=== PATIENT | female | born 1985 | race Caucasian/White ===

== ENCOUNTER 2019-10-15 07:31 | Outpatient (CLI) | payer BC, SELFPAY ==
--- NOTE | ~2019-10-15 | MR_ITS ---
EXAMINATION: MR lumbar spine wo con DATE: 10/15/2019 08:24 INDICATION: Lumbar radiculopathy. TECHNIQUE: Magnetic resonance imaging (MRI) of the lumbar spine was performed without intravenous con trast. Sequences included sagittal T2-weighted FSE, sagittal T2-weighted FS FSE, sagittal T1-weighted FSE, and axial T2-weighted FSE. COMPARISON: Lumbar spine MRI 08/06/2016 FINDINGS: There is 4 mm retrolisthesis of L5 on S1. Vertebral body heights are normal. There is sever dori decreased disc height at L5-S1. The distal spinal cord signal intensity is normal. The conus medu llaris is at L1-L2. The following disc levels are specifically discussed: L1-L2 through L3-L4: The disc does not extend beyond the endplate margin. There is no facet joint ost eoarthritis. There is no neural foraminal stenosis. There is no central canal stenosis. L4-L5: The disc does not extend beyond the endplate margin. There is mild bilateral facet joint osteo arthritis. There is no neural foraminal stenosis. There is no central canal stenosis. L5-S1: The disc is bulging and has an annular fissure. There is mild right facet joint osteoarthritis . There is mild bilateral neural foraminal stenosis. There is mild central canal stenosis. IMPRESSION: 1. Severe lower lumbar spondylosis, stable from 08/06/2016. Reviewed, dictated and finalized at location B.
== END 2019-10-15 07:32 ==
PROVIDERS: PCP Internal Medicine; Visit Provider Nurse Practitioner Adult Health
DX: M47.26 Other spondylosis with radiculopathy, lumbar region (principal)
CPT/HCPCS: 72148

== ENCOUNTER 2020-06-03 11:37 | Emergency (ER) | payer BC, SELFPAY ==
--- NOTE | ~2020-06-03 | CT_ITS ---
EXAMINATION: CT abdomen pelvis w con DATE: 06/03/2020 14:31 INDICATION: Right lower quadrant abdominal pain, nausea and vomiting. TECHNIQUE: Computed tomography (CT) of the abdomen and pelvis was performed with 100 cc Omnipaque 350 intravenous contrast. Automated exposure control and iterative reconstruction technique were employe d. Exam dose: 05/14/2017 CT abdomen pelvis mGy-cm total exam DLP. COMPARISON: None. FINDINGS: The lung bases are clear of infiltrate or consolidation. Heart size is within normal limits. The liver, gallbladder, bile ducts, spleen, pancreas, pancreatic duct, and adrenal glands and kidneys are unremarkable. Normal caliber of the abdominal aorta. Status post hysterectomy. 3.6 x 4 cm right ovarian cyst. The adnexal areas are otherwise unremarkable . No intraperitoneal or retroperitoneal or pelvic mass lesion or adenopathy or ascites is noted otherwi se. No evidence of appendicitis. No bowel obstruction, bowel wall thickening, pneumatosis or intraperiton eal free air. IMPRESSION: 3.6 x 4 cm right ovarian cyst Status post hysterectomy Severe degenerative disc disease and mild retrolisthesis at L5-S1 Reviewed, dictated and finalized at [facility]. Reviewed, dictated and finalized at location A.
[2020-06-03 11:42] VITALS: BP 123/62; PULSE 85; RESP 18; TEMP 36.4; O2SAT 100
--- NOTE | 2020-06-03 12:08 | ED.FEVER ---
HPI - Fever General Chief Complaint: Fever Stated Complaint: FEVER Time Seen by Provider: 06/03/20 12:03 History of Present Illness HPI Narrative: 35 yo female w/ h/o ovarian cysts presents to the ED for lower abdominal pain. She reports that she has had ongoing lower abdominal pain for quite some time due to numerous bilateral ovarian cysts. She is scheduled to have bilateral oophorectomy by Dr. Navarro in the near future. She came in today because while working over night the pain in RLQ became worse. She was also sent home from work for an elevated temperature of 100.3. Additional she did vomit once. She took Tylenol before coming in. Related Data Home Medications Medication Instructions Recorded Confirmed cyclobenzaprine mg 06/03/20 hydrocodone-acetaminophen 06/03/20 meloxicam 06/03/20 Allergies Allergy/AdvReac Type Severity Reaction Status Date / Time clindamycin Allergy Unknown ITCHING, Verified 06/03/20 11:45 HIVES erythromycin base Allergy Unknown UNSURE OF Verified 06/03/20 11:45 REACTION sulfisoxazole Allergy Unknown UNSURE OF Verified 06/03/20 11:45 REACTION Review of Systems Review of Systems: All systems reviewed & are unremarkable except as noted in HPI and below Constitutional: Constitutional: Reports fever(s) Cardiovascular: Cardiovascular: Denies chest pain Respiratory: Respiratory: Denies dyspnea Gastrointestinal: Gastrointestinal: Reports abdominal pain, Denies constipation, Denies diarrhea, Reports nausea and Reports vomiting Genitourinary: Genitourinary: Denies abnormal vaginal bleeding, Denies hematuria, Denies dysuria and Denies vaginal discharge Musculoskeletal: Musculoskeletal: Denies back pain Neurologic: Denies dizziness and Denies weakness [facility] Past Medical History Medical History (Updated 06/04/20 @ 00:01 by Amber Daeusebio) Ovarian cyst Social History Social History Gender identity (if verbalized by the patient): Female Exam Const: General: healthy appearing, no acute distress and alert Orientation/consciousness: patient oriented x3 HENMT: Head: normal to inspection Neck: Neck: normal visual inspection Resp: Effort & Inspection: normal respiratory effort Auscultation: clear to auscultation bilaterally, no rales, no rhonchi and no wheezes Cardio: Jugular venous distension: no JVD Rate: regular rate Rhythm: regular rhythm Heart sounds: no murmurs GI: Inspection: non-distended GI Palp: Yes Soft to palpation, Yes Tenderness to palpation present (GI) (RLQ), No Guarding due to palpation present (GI) and No Rebound tenderness present Skin: General skin exam: normal color Neuro: General: patient oriented x3 and moves all extremities Speech: normal speech Psych: Appearance: well kempt Affect: normal affect Course Vital Signs Vital signs: Vital Signs Temperature 36.4 C 06/03/20 11:42 Pulse Rate 85 06/03/20 11:42 Respiratory Rate 18 06/03/20 11:42 Blood Pressure 123/62 06/03/20 11:42 Pulse Oximetry 100 06/03/20 11:42 Temperature 36.4 C 06/03/20 11:42 Pulse Rate 63 06/03/20 14:00 Respiratory Rate 18 06/03/20 14:00 Blood Pressure 100/43 L 06/03/20 14:00 Pulse Oximetry 98 06/03/20 14:00 MDM - Fever MDM Narrative Medical decision making narrative: CT shows only right avarian cyst. No other acute findings.. Case discussed with Dr. Navarro. He will plan to move forward with surgery as planned. Differential Diagnosis Differential diagnosis: Likely other (appendicits, cyst rupture) Medical Records Attestation: I reviewed the patient's medical records. Lab Data Attestation: I reviewed the patient's lab results. Result diagrams: 06/03/20 12:48 06/03/20 12:48 Labs: Lab Results 06/03/20 06/03/20 06/03/20 Range/Units 12:48 12:48 12:48 WBC 6.4 (4.5-10.0) K/mm3 RBC 4.35 (4.2-5.4) M/mm3 Hgb 14.3 (12.0-15.0) g/dL Hct 43.1 (37.0-47.0) % MCV 99.1
[2020-06-03 12:55] LABS: Basophils Percent Auto 0.6 % (0.2-1.2); Eosinophils Absolute Auto 0.1 K/mm3 (0-0.3); Eosinophils Percent Auto 1.4 % (0-4.4); Hematocrit 43.1 % (37.0-47.0); Hemoglobin 14.3 g/dL (12.0-15.0); Immature Granulocyte Absolute 0.02 K/mm3 (0.00-0.031); Immature Granulocyte Percent A 0.3 % (0-0.5); Lymphocytes Absolute Auto 1.94 K/mm3 (0.9-3.2); Lymphocytes Percent Auto 30.5 % (18.3-44.2); Mean Corpuscular HGB Conc 33.2 g/dl (32-36); Mean Corpuscular Hemoglobin 32.9 pg (26-34); Mean Corpuscular Volume 99.1 fl (80-100); Monocytes Absolute Auto 0.3 K/mm3 (0.1-0.6); Monocytes Percent Auto 4.9 % (2.6-8.5); Neutrophils Percent Auto 62.3 % (45.5-73.1); Platelet Count Result 175 k/mm3 (150-375); Red Blood Count 4.35 M/mm3 (4.2-5.4); Red Cell Distribution Width 12.2 % (11.5-14.5); White Blood Count 6.4 K/mm3 (4.5-10.0)
[2020-06-03 13:00] LABS: Add Urine Microscopic? YES; Appearance Urine Cloudy (Clear); Bacteria Urine Trace /hpf; Bilirubin Urine Negative (Negative); Blood Urine 1+ (Negative); Color Urine Yellow (Yellow); Glucose Urine UA Negative (Negative); Ketones Urine 1+ mg/dL (Negative); Leukocyte Esterase Ur Negative LEU/UL (Negative); Mucus Urine Rare /lpf; Nitrate Urine Negative (Negative); Protein Urine Negative (Negative); RBC Urine 0-2 /hpf (0-2); Specific Grav Ur 1.013 (1.001-1.035); Squamous Epithelial Cell Urine Occasional /hpf (Few); Urobilinogen Urine Negative mg/dL (<2.0); WBC Urine 0-3 /hpf
[2020-06-03 13:06] LABS: Alanine Aminotransferase 15 U/L (4-35); Albumin Level 4.6 g/dL (3.5-5.1); Alkaline Phosphatase 38 U/L (38-126); Anion Gap 4 mmol/L (8-16); Aspartate Amino Transferase 25 U/L (14-36); Blood Urea Nitrogen 9 mg/dL (7-17); Calcium 8.9 mg/dL (8.4-10.2); Carbon Dioxide 29 mmol/L (22-30); Chloride 104 mmol/L (98-107); Estimated CRCL calculation 92 ml/min; Estimated Glomerular Filt Rate > 60; Glucose 82 mg/dL (65-105); Lipase 84 U/L (23-300); Potassium 4.2 mmol/L (3.4-5.0); Sodium 137 mmol/L (137-145)
[2020-06-03 14:00] VITALS: BP 100/43; PULSE 63; RESP 18; O2SAT 98
[2020-06-03] MEDS: HYDROcodone/acetaminophen (*CRX) 5-325 MG TABLET 1 TAB PO (14:38)
== END 2020-06-03 15:40 | disposition home or self-care (01) ==
PROVIDERS: Emergency Provider Emergency Medicine; PCP Internal Medicine
DX: N83.201 Unspecified ovarian cyst, right side (principal); M51.37 Other intervertebral disc degeneration, lumbosacral region
CPT/HCPCS: 36415; 74177; 80053; 81001; 83690; 85025; 99284; A9270; Q9967

== ENCOUNTER 2020-06-08 11:22 | Outpatient (CLI) | payer BC, SELFPAY ==
--- NOTE | 2020-06-08 11:26 | ECG_ITS ---
Measurements Intervals [place] Rate: 71 P: 65 HI: 149 QRS: 41 QRSD: 92 T: 35 QT: 383 QTc: 418 Interpretive Statements SINUS RHYTHM WITH SINUS ARRHYTHMIA INCOMPLETE RIGHT BUNDLE BRANCH BLOCK DELAYED PRECORDIAL R/S TRANSITION BASELINE ARTIFACT- I, II, III, AVR, AVL, AVF, V1-V2 BORDERLINE ECG Electronically Signed On 06-08-2020 11:52:13 CDT by Alex Herrera D.O.
== END 2020-06-08 11:23 | disposition home or self-care (01) ==
LOC: ANHSURGERY 11:25
PROVIDERS: PCP Internal Medicine; Visit Provider Obstetrics & Gynecology
DX: Z87.891 Personal history of nicotine dependence (principal); Z01.818 Encounter for other preprocedural examination; I45.10 Unspecified right bundle-branch block
CPT/HCPCS: 93005

== ENCOUNTER → 2020-06-10 00:46 | Outpatient (CLI) | payer BC, SELFPAY ==
[2020-06-10 20:53] LABS: SARS-CoV-2 RNA PCR Negative
== END ==
PROVIDERS: PCP Internal Medicine; Visit Provider Obstetrics & Gynecology
DX: Z01.812 Encounter for preprocedural laboratory examination (principal); Z20.822 Contact with and (suspected) exposure to COVID-19
CPT/HCPCS: C9803; U0003; U0005

== ENCOUNTER 2020-06-14 00:29 | Day surgery (SDC) | payer BC, SELFPAY ==
[2020-06-05 14:31] VITALS: BMI 22.6
--- NOTE | 2020-06-13 14:33 | WPDANESEPPF ---
Anes - Initial Pre Proc Eval Procedure: Operation Date: 06/14/20 10:30 Proposed Procedures p Laparoscopic Bilateral Oophorectomy - Abdirizak Navarro MD Date/Time: 06/13/20 14:33 Surgeon: Abdirizak Navarro MD Pre Op Diagnosis: Ovarian Cyst Patient Data Age: 35 Gender: F Height: 1.7 m Weight: 65.7 kg Allergies Allergy/AdvReac Type Severity Reaction Status Date / Time clindamycin Allergy Severe ITCHING, Verified 06/14/20 08:39 HIVES erythromycin base AdvReac Mild RASH/ITCHY Verified 06/14/20 08:39 sulfisoxazole AdvReac Unknown Verified 06/14/20 08:39 INFANT-MOM/PT UNSURE OF REACTION Home Medications Medication Instructions Recorded Confirmed Type cyclobenzaprine 10 mg PO HS PRN 06/03/20 06/14/20 History hydrocodone-acetaminophen 1 tablet PO Q6H PRN 06/03/20 06/14/20 History meloxicam 15 mg PO DAILY 06/03/20 06/14/20 History cetirizine [Zyrtec] 10 mg PO DAILY 06/05/20 06/14/20 History landry kvrq-epjnlckl-okenqkmyo ac 2 cap PO DAILY 06/05/20 06/14/20 History [[place] Oil] fluticasone propionate [Flonase] 2 spray INTRANASAL DAILY 06/05/20 06/14/20 History Patient hx anesthesia problems: none Family hx anesthesia problems: none PMFSH Past Medical History Medical History (Updated 06/13/20 @ 14:35 by Joshua Rodriguez MD) Back pain Chronic narcotic use Migraine Ovarian cyst Social History Social History Smoking packs per day: 1 Smoking cigarettes per day: 20.0 Years smoked: 20 Smoking pack-years: 20.00 Smoking status: Current every day smoker Tobacco type: cigarettes and e-cigarettes/vaping Additional smoking assessment comments: STOPPED SMOKING CIGARETTES 5 YRS AGO Alcohol intake: never Substance use: never Substance use type: does not use Living arrangements: with family Gender identity (if verbalized by the patient): Female Spiritual care concerns: No Anes - Eval Final PreProcedure Day of Procedure 06/13/20 14:33 Patient weight: normal Heart: regular rate and rhythm Lungs: clear to auscultation and normal air movement Airway: Mallampati scale class II Neurological: alert and oriented Last oral intake: >/= 8 hours ASA classification: II Emergent: no Anesthetic plan: proceed Anesthesia type and monitoring: general ETT Informed Consent: The patient's anesthetic plan and its attendant risks and benefits were discussed with the patient/family/POA. Questions were solicited and answers provided to the satisfaction of the patient/family/POA.
[2020-06-14] VITALS (9 sets, daily range): BP systolic 101–124; BP diastolic 49–79; PULSE 56–88; RESP 14–20; TEMP 36.4; O2SAT 94–100
[2020-06-14] MEDS: ACETAMINOPHEN 500 MG TABLET 1000 MG PO (08:55)
[2020-06-14] MEDS: LACTATED RINGERS 1,000 ML 30 ML IV CONT ×3 (09:00→13:43)
[2020-06-14] MEDS: KETOROLAC 15 MG/ML VIAL (*BKC) IV PUSH (09:02)
--- NOTE | 2020-06-14 10:05 | WPDHPUPDATE1 ---
History and Physical Update Update Date/Time: 06/14/20 10:05 History and Physical has been reviewed, including an updated exam of the patient. There are NO changes in the patient's condition. Risks, benefits, and alternatives have been discussed and questions answered. Patient agrees to proceed with procedure.
--- NOTE | 2020-06-14 12:21 | P.OP_ITS ---
Procedure Note - Detailed Date of procedure: 06/14/20 Pre-op diagnosis: Ovarian Cyst Procedure performed: Laparoscopic bilateral salpingo-oophorectomy, adhesiolysis- 1 hour Description of procedure: The patient was taken the operating room. She was prepped and draped in the dorsal lithotomy position after induction of general anesthesia. A 5 mm left upper quadrant incision was made in the abdominal skin with a scalpel. A 5 mm trocar was inserted the intra-abdominal cavity under direct visualization of the scope. A 11 mm left lower quadrant incision was made with the scalp on the abdominal skin and a 11 mm trocar was inserted the intra-abdominal cavity under direct visualization of the scope. A 5 mm infraumbilical incision was made with scalpel and a 5 mm trocar was inserted into the intra-abdominal cavity under direct visualization of the scope. Ureters were dissect than on both sides. Extensive adhesiolysis was performed in order to expose ureters bilaterally. Infundibulopelvic ligaments were elevated along with the ovary bilaterally. Infundibulopelvic ligaments were cauterized and transected with cautery. Both ovaries were adherent to the pelvic sidewalls with dense adhesions. Dissected off the pelvic sidewall with an awareness of the ureter anatomy. The ovaries were placed in an endobag with a were free and taken at the left lower quadrant trocar site. The pelvis was irrigated with copious amounts of normal saline. The pneumop eritoneum was reduced. The trocars were removed. The patient was taken recovery room stable condition. Sponge lap and needle counts were correct x2. Anesthesia: GETA Surgeon: Abdirizak Navarro MD Estimated blood loss (mL): 100 Drains: No Packing: No Complications: No immediate complications Condition: stable Disposition: PACU Findings: Bilateral ovaries were adherent to the lateral pelvic sidewalls. There was a likely endometrioma on the right ovary.
[2020-06-14] MEDS: fentaNYL CITRATE INJ (*CRX) 100 MCG/2 ML VIAL 25 MCG IV PUSH ×4 (12:59→13:22)
[2020-06-14] MEDS: HYDROmorphone HCL INJ (*CRX) 1 MG/ML SYR 0.25 MG IV PUSH ×4 (13:03→13:32)
[2020-06-14] MEDS: oxyCODONE HCL (*CRX) 5 MG TAB IR PO (14:07)
== END 2020-06-14 15:05 | disposition home or self-care (01) ==
PROVIDERS: PCP Internal Medicine; Visit Provider Obstetrics & Gynecology
PROC: (CPT 49320; principal; 2020-06-14 10:30)
DX: N83.12 Corpus luteum cyst of left ovary (principal); N83.11 Corpus luteum cyst of right ovary; N83.02 Follicular cyst of left ovary; N83.01 Follicular cyst of right ovary; N83.292 Other ovarian cyst, left side; N83.291 Other ovarian cyst, right side; N73.6 Female pelvic peritoneal adhesions (postinfective); Z86.008 Personal history of in-situ neoplasm of other site; Z90.710 Acquired absence of both cervix and uterus
CPT/HCPCS: 58661; 88305; 93005; A9270; C9803; J0330; J1100; J1170; J1200; J1885; J2250; J2405; J2704; J2710; J3010; J7030; J7120; U0003; U0005

== ENCOUNTER 2021-12-20 16:38 | Emergency (ER) | payer BC, SELFPAY ==
[2021-12-20] VITALS (10 sets, daily range): BP systolic 98–113; BP diastolic 51–62; PULSE 56–83; RESP 12–24; TEMP 37; O2SAT 96–100
--- NOTE | ~2021-12-20 | CT_ITS ---
EXAMINATION: CTA chest PE abdomen pel DATE: 12/20/2021 19:18 INDICATION: Right chest pain. Recent travel. Estrogen therapy. TECHNIQUE: Computed tomography angiography (CTA) of the chest was performed with 100 mL Omnipaque-350 intravenous contrast timed to evaluate the pulmonary arteries. Coronal maximum intensity projection 3D-reconstructions were created by the technologist. Automated exposure control and iterative reconst ruction technique were employed. Exam dose: 485.10 mGy-cm total exam DLP. COMPARISON: 12/20/2021 AP and lateral chest FINDINGS: There is diagnostic contrast enhancement of pulmonary embolism no evidence of pulmonary emb olism. No thoracic aortic aneurysm or dissection is evident. No hilar or mediastinal mass lesion or lymphadenopathy. Normal heart size. No pericardial or pleural effusion. No pulmonary infiltrate or consolidation or pulmonary mass lesion. Pectus excavatum. No suspicious osteolytic or osteoblastic lesions. The liver, gallbladder, bile ducts, spleen, pancreas, pancreatic duct, and adrenal glands and kidneys appear normal. Normal caliber of the abdominal aorta. No intraperitoneal or retroperitoneal or pelvi c mass lesion or adenopathy or ascites. The urinary bladder is unremarkable. The uterus appears to be surgically absent. No bowel obstruction, bowel wall thickening, pneumatosis or intraperitoneal free air Prominent degenerative disc disease and mild retrolisthesis at L5-S1. No suspicious osteolytic or osteoblastic lesions. IMPRESSION: No evidence of pulmonary embolism Reviewed, dictated and finalized at [facility]. Reviewed, dictated and finalized at location A.
--- NOTE | ~2021-12-20 | XR_ITS ---
XR chest 2V DATE: 12/20/2021 17:55 INDICATION: Central chest pain. Dizziness. TECHNIQUE: AP and lateral views COMPARISON: None FINDINGS: Pectus excavatum. Heart size is within normal limits. No pulmonary infiltrate or consolidat ion, pleural effusion or pulmonary vascular congestion or pneumothorax. IMPRESSION: No active cardiopulmonary disease Reviewed, dictated and finalized at location A.
--- NOTE | 2021-12-20 16:43 | ECG_ITS ---
Measurements Intervals [place] Rate: 69 P: 64 CT: 147 QRS: 54 QRSD: 104 T: 47 QT: 392 QTc: 420 Interpretive Statements SINUS RHYTHM INCOMPLETE RIGHT BUNDLE BRANCH BLOCK BASELINE ARTIFACT- I, II, AVR, AVL, AVF, V1-V6 BORDERLINE ECG COMPARED TO ECG 06/08/2020 11:39:36 NO SIGNIFICANT CHANGES Electronically Signed On 12-20-2021 19:05:35 CDT by Alex Herrera D.O.
[2021-12-20 17:19] LABS: Basophils Percent Auto 0.5 % (0.2-1.2); Eosinophils Absolute Auto 0.2 K/mm3 (0-0.3); Eosinophils Percent Auto 2.5 % (0-4.4); Hematocrit 41.2 % (37.0-47.0); Hemoglobin 13.7 g/dL (12.0-15.0); Immature Granulocyte Absolute 0.01 K/mm3 (0.00-0.031); Immature Granulocyte Percent A 0.2 % (0-0.5); Lymphocytes Absolute Auto 2.16 K/mm3 (0.9-3.2); Lymphocytes Percent Auto 35.7 % (18.3-44.2); Mean Corpuscular HGB Conc 33.3 g/dl (32-36); Mean Corpuscular Hemoglobin 32.7 pg (26-34); Mean Corpuscular Volume 98.3 fl (80-100); Monocytes Absolute Auto 0.4 K/mm3 (0.1-0.6); Monocytes Percent Auto 6.6 % (2.6-8.5); Neutrophils Absolute Auto 3.3 K/mm3 (1.3-6.7); Neutrophils Percent Auto 54.5 % (45.5-73.1); Platelet Count Result 172 k/mm3 (150-375); Red Blood Count 4.19 M/mm3 (4.2-5.4); White Blood Count 6.1 K/mm3 (4.5-10.0)
--- NOTE | 2021-12-20 17:19 | ED.CHESTPAIN ---
HPI - Chest Pain General Chief Complaint: Chest Pain Stated Complaint: chest pain Time Seen by Provider: 12/20/21 17:19 History of Present Illness HPI narrative: Patient is a 36-year-old female with a history of cervical cancer status post hysterectomy on estrogen therapy presenting with chest pain. Patient states that for the last week she has had ongoing right-sided chest pain that has worsened over the last several days. States that it is worse with inspiration. States she feels like she cannot get a full breath. Patient reports that she had a plane ride several weeks ago. States that she currently takes estradiol. Patient complains of some mild epigastric pain but no nausea or vomiting, dysuria, diarrhea. No recent leg swelling. No fevers, headache, numbness, weakness. Related Data Home Medications Medication Instructions Recorded Confirmed cyclobenzaprine 10 mg tablet 10 mg PO HS PRN Pain 06/03/20 06/14/20 hydrocodone 5 mg-acetaminophen 325 1 tablet PO Q6H PRN Pain 06/03/20 06/14/20 mg tablet meloxicam 15 mg tablet 15 mg PO DAILY 06/03/20 06/14/20 cetirizine 10 mg tablet (Zyrtec) 10 mg PO DAILY 06/05/20 06/14/20 evening primrose oil-linoleic 2 cap PO DAILY 06/05/20 06/14/20 acid-gamolenic acid 1,000 mg capsule ([place] Oil) fluticasone propionate 50 2 spray intranasal DAILY 06/05/20 06/14/20 mcg/actuation nasal spray,suspension Allergies Allergy/AdvReac Type Severity Reaction Status Date / Time clindamycin Allergy Severe ITCHING, Verified 06/14/20 08:39 HIVES erythromycin base AdvReac Mild RASH/ITCHY Verified 06/14/20 08:39 sulfisoxazole AdvReac Unknown Verified 06/14/20 08:39 INFANT-MOM/PT UNSURE OF REACTION Review of Systems Review of Systems: All systems reviewed & are unremarkable except as noted in HPI and below PMFSH Past Medical History Medical History Back pain Chronic narcotic use Migraine Ovarian cyst Social History Social History Smoking packs per day: 1 Smoking cigarettes per day: 20.0 Years smoked: 20 Smoking pack-years: 20.00 Smoking status: Current every day smoker Tobacco type: cigarettes and e-cigarettes/vaping Additional smoking assessment comments: STOPPED SMOKING CIGARETTES 5 YRS AGO Alcohol intake: never Substance use: never Substance use type: does not use Gender identity (if verbalized by the patient): Female Spiritual care concerns: No Exam Narrative: GENERAL: Well-appearing, well-nourished, and in no acute distress. HEAD: Normocephalic, atraumatic. EYES: PERRLA and EOMI. ENT: Nares clear, no rhinorrhea or epistaxis. Mucous membranes moist. NECK: Supple. CHEST: Clear to auscultation. No respiratory distress. HEART: Regular rate and rhythm. No murmur heard. Normal peripheral pulses. ABDOMEN: Soft, mild epigastric tenderness, nondistended, normal active bowel sounds. EXTREMITIES: Normal range of motion. No edema. SKIN: Warm, dry, no rash. NEURO: No focal deficits. Alert and oriented x3. PSYCH: Normal mood and affect. Course Vital Signs Vital signs: Vital Signs Temperature 98.6 F 12/20/21 16:48 Pulse Rate 76 12/20/21 16:48 Respiratory Rate 20 12/20/21 16:48 Blood Pressure 111/57 L 12/20/21 16:48 Pulse Oximetry 96 12/20/21 16:48 Oxygen Delivery Room Air 12/20/21 16:48 Temperature 98.6 F 12/20/21 16:48 Pulse Rate 65 12/20/21 21:13 Respiratory Rate 16 12/20/21 21:13 Blood Pressure 98/51 L 12/20/21 21:13 Pulse Oximetry 100 12/20/21 21:13 Oxygen Delivery Room Air 12/20/21 16:48 MDM - Chest Pain MDM Narrative Medical decision making narrative: Patient is a 36-year-old female with history as above presenting with chest pain. Vitals within normal limits. Exam remarkable for the above. EKG per my interpretation shows normal sinus rhythm, normal
[2021-12-20 17:30] LABS: Prothrombin Time 13.1 Seconds (11.1-14.7)
[2021-12-20 17:31] LABS: Alanine Aminotransferase 19 U/L (6-35); Albumin Level 4.7 g/dL (3.5-5.1); Alkaline Phosphatase 47 U/L (38-126); Anion Gap 9 mmol/L (8-16); Aspartate Amino Transferase 25 U/L (14-36); Bilirubin,Total 0.7 mg/dL (0.2-1.3); Blood Urea Nitrogen 13 mg/dL (7-17); Carbon Dioxide 26 mmol/L (22-30); Chloride 102 mmol/L (98-107); Estimated CRCL calculation 91 ml/min; Estimated Glomerular Filt Rate > 60; Glucose 106 mg/dL (65-110); Lipase 536 U/L (23-300); Partial Thromboplastin Time 32.9 SECONDS (22.3-36.8); Potassium 3.6 mmol/L (3.4-5.0); Sodium 137 mmol/L (137-145)
[2021-12-20 17:43] LABS: Troponin I < 0.012 ng/mL (0.000-0.034)
[2021-12-20] MEDS: KETOROLAC 15 MG/ML VIAL (*BKC) IV PUSH (18:40)
[2021-12-20] MEDS: SODIUM CHLORIDE 0.9% IV 1,000 ML 999 ML IV CONT (18:41)
[2021-12-20 20:18] LABS: Troponin I < 0.012 ng/mL (0.000-0.034)
== END 2021-12-20 21:14 | disposition home or self-care (01) ==
PROVIDERS: Emergency Medicine; Emergency Provider Emergency Medicine; PCP Chiropractor
DX: R07.89 Other chest pain (principal); R74.8 Abnormal levels of other serum enzymes; F17.210 Nicotine dependence, cigarettes, uncomplicated; Z85.41 Personal history of malignant neoplasm of cervix uteri
CPT/HCPCS: 36415; 71046; 71275; 74177; 80053; 83690; 84484; 85025; 85610; 85730; 93005; 96361; 96374; 99284; J1885; J7030; Q9967

== ENCOUNTER 2023-02-22 12:06 | Outpatient (CLI) | payer BC, SELFPAY ==
--- NOTE | ~2023-02-22 | XR_ITS ---
Clinical Indication: Dyspnea PA and lateral views of the chest: Comparison: 12/20/2021 Findings: The lungs are clear, without evidence of focal consolidation or pleural effusion. Cardiome diastinal silhouette is within normal limits. Bones and soft tissues are unremarkable. Impression: Normal chest. Reviewed, dictated and finalized at [facility]. LING OPERATOR Impression: Normal chest.
== END 2023-02-22 12:07 | disposition home or self-care (01) ==
PROVIDERS: PCP Internal Medicine Geriatric Medicine; Visit Provider Internal Medicine Geriatric Medicine
DX: R06.00 Dyspnea, unspecified (principal)
CPT/HCPCS: 71046

== ENCOUNTER 2023-09-20 11:16 | Emergency (ER) | payer BC, SELFPAY ==
[2023-09-20] VITALS (27 sets, daily range): BP systolic 109–138; BP diastolic 61–85; PULSE 47–86; RESP 15–38; TEMP 36.3–36.8; O2SAT 91–100
--- NOTE | ~2023-09-20 | XR_ITS ---
XR chest 2V DATE: 09/20/2023 13:49 INDICATION: Chest pain, shortness of breath TECHNIQUE: PA and lateral views COMPARISON: 02/22/2023 2 view chest FINDINGS: Normal heart size. No hilar or mediastinal enlargement. No pulmonary infiltrate or consolid ation, pleural effusion or pulmonary vascular congestion or pneumothorax. Status post cholecystectomy. Included skeletal structures are unremarkable other than pectus excavatum and minimal degenerative sp urring of the thoracic spine. IMPRESSION: No active cardiopulmonary disease Reviewed, dictated and finalized at location J.
--- NOTE | 2023-09-20 12:47 | ECG_ITS ---
Test Date: 2023-09-20 13:15:33 Measurements Intervals [place] Rate: 49 P: 77 NC: 137 QRS: 48 QRSD: 82 T: 48 QT: 444 QTc: 402 Interpretive Statements SINUS BRADYCARDIA OTHERWISE NORMAL ECG No previous ECG available for comparison Electronically Signed On 09-21-2023 08:51:44 CDT by Yordy Ribeiro M.D.
--- NOTE | 2023-09-20 12:49 | ED.CHESTPAIN ---
HPI - Chest Pain General Chief Complaint: Asthma Stated Complaint: shortness of breath asthma attack. Time Seen by Provider: 09/20/23 11:55 History of Present Illness HPI narrative: 38-year-old female history of asthma presenting with chest pain. Patient states that the last several days she has had intermittent diffuse chest pain that radiates into her back. Describes it as tightness and associated with shortness of breath. States she sometimes gets short of breath when she is talking. Also complains of lightheadedness and nausea with poor p.o. intake. No vomiting. Complains of some epigastric discomfort. No leg swelling. No hormone use. No recent immobilization or surgery. No fevers. Reports mild cough, concern for COVID. Related Data Home Medications Medication Instructions Recorded Confirmed cyclobenzaprine 10 mg tablet 10 mg PO HS PRN Pain 06/03/20 06/14/20 hydrocodone 5 mg-acetaminophen 325 1 tablet PO Q6H PRN Pain 06/03/20 06/14/20 mg tablet meloxicam 15 mg tablet 15 mg PO DAILY 06/03/20 06/14/20 cetirizine 10 mg tablet (Zyrtec) 10 mg PO DAILY 06/05/20 06/14/20 evening primrose oil-linoleic 2 cap PO DAILY 06/05/20 06/14/20 acid-gamolenic acid 1,000 mg capsule ([place] Oil) fluticasone propionate 50 2 spray intranasal DAILY 06/05/20 06/14/20 mcg/actuation nasal spray,suspension Allergies Allergy/AdvReac Type Severity Reaction Status Date / Time clindamycin Allergy Severe ITCHING, Verified 06/14/20 08:39 HIVES erythromycin base AdvReac Mild RASH/ITCHY Verified 06/14/20 08:39 sulfisoxazole AdvReac Unknown Verified 06/14/20 08:39 -MOM/PT UNSURE OF REACTION Review of Systems Review of Systems: All systems reviewed & are unremarkable except as noted in HPI and below PMFSH Past Medical History Medical History Back pain Chronic narcotic use Migraine Ovarian cyst Social History Social History Smoking packs per day: 1 Smoking cigarettes per day: 20.0 Years smoked: 20 Smoking pack-years: 20.00 Smoking status: Current every day smoker Tobacco type: cigarettes and e-cigarettes/vaping Additional smoking assessment comments: STOPPED SMOKING CIGARETTES 5 YRS AGO Alcohol intake: never Substance use: never Substance use type: does not use Living arrangements: with family Gender identity (if verbalized by the patient): Female Spiritual care concerns: No Exam Narrative: GENERAL: Nontoxic, no acute distress HEAD: Normocephalic, atraumatic. EYES: PERRLA and EOMI. ENT: Mucous membranes moist. NECK: Supple. CHEST: Clear to auscultation. No respiratory distress. No wheezing or crackles, saturating 100% on room air; + diffuse anterior chest wall tenderness HEART: Regular rate and rhythm. ABDOMEN: Soft, + mild epigastric tenderness, no guarding or rebound EXTREMITIES: Normal range of motion. No edema. SKIN: Warm, dry, no rash. NEURO: No focal deficits. Alert and oriented x3. PSYCH: Normal mood and affect. Course Vital Signs Vital signs: Vital Signs Temperature 98.3 F 09/20/23 11:19 Respiratory Rate 16 09/20/23 11:19 Blood Pressure 116/68 09/20/23 11:19 Pulse Oximetry 100 09/20/23 11:19 Oxygen Delivery Room Air 09/20/23 11:19 Temperature 97.4 F L 09/20/23 15:13 Pulse Rate 77 09/20/23 15:00 Respiratory Rate 29 H 09/20/23 15:00 Blood Pressure 110/74 09/20/23 15:00 Pulse Oximetry 94 09/20/23 15:00 Oxygen Delivery Room Air 09/20/23 11:24 MDM - Chest Pain MDM Narrative Medical decision making narrative: 38-year-old female presenting with several days of intermittent chest pain, shortness of breath. Vitals within normal limits. Saturating 100% on room air. She does have some mild epigastric tenderness as well as diffuse chest wall tenderness. She is not wheezing on exa
[2023-09-20] MEDS: KETOROLAC 30 MG/ML VIAL (*BKC) IV PUSH (13:05)
[2023-09-20] MEDS: ONDANSETRON INJ 4 MG/2 ML VIAL IV PUSH (13:05)
[2023-09-20 13:07] LABS: Basophils Percent Auto 0.2 % (0.2-1.2); Eosinophils Percent Auto 0.1 % (0-4.4); Hematocrit 42.9 % (37.0-47.0); Immature Granulocyte Absolute 0.04 K/mm3 (0.00-0.031); Immature Granulocyte Percent A 0.4 % (0-0.5); Lymphocytes Absolute Auto 1.37 K/mm3 (0.9-3.2); Lymphocytes Percent Auto 12.9 % (18.3-44.2); Mean Corpuscular HGB Conc 32.6 g/dl (32-36); Mean Corpuscular Hemoglobin 32.9 pg (26-34); Mean Corpuscular Volume 100.9 fl (80-100); Mean Platelet Volume 11.2 fl (7.4-10.4); Monocytes Absolute Auto 0.3 K/mm3 (0.1-0.6); Neutrophils Absolute Auto 8.8 K/mm3 (1.3-6.7); Neutrophils Percent Auto 83.4 % (45.5-73.1); Platelet Count Result 231 k/mm3 (150-375); Red Blood Count 4.25 M/mm3 (4.2-5.4); Red Cell Distribution Width 12.6 % (11.5-14.5); White Blood Count 10.6 K/mm3 (4.5-10.0)
[2023-09-20] MEDS: SODIUM CHLORIDE 0.9% IV 1,000 ML 999 ML IV CONT (13:07)
[2023-09-20 13:17] LABS: Alanine Aminotransferase 22 U/L (6-35); Albumin Level 4.7 g/dL (3.5-5.1); Alkaline Phosphatase 53 U/L (38-126); Anion Gap 7 mmol/L (4-12); Aspartate Amino Transferase 23 U/L (14-36); Bilirubin,Total 0.8 mg/dL (0.2-1.3); Blood Urea Nitrogen 10 mg/dL (7-17); Calcium 9.3 mg/dL (8.4-10.2); Carbon Dioxide 29 mmol/L (22-30); Chloride 102 mmol/L (98-107); Estimated CRCL calculation 93 ml/min; Estimated Glomerular Filt Rate > 60; Glucose 99 mg/dL (65-110); Lipase 75 U/L (23-300); Potassium 4.4 mmol/L (3.4-5.0); Sodium 138 mmol/L (137-145)
[2023-09-20 13:28] LABS: Troponin I < 0.012 ng/mL (0.000-0.034)
[2023-09-20 13:43] LABS: Influenza A QL RT-PCR Negative (Negative); Influenza B QL RT-PCR Negative (Negative); RSV RNA, RT-PCR Negative (Negative); SARS-CoV-2 RNA PCR Negative (Negative)
== END 2023-09-20 15:13 | disposition home or self-care (01) ==
PROVIDERS: Emergency Provider Emergency Medicine; PCP Internal Medicine Geriatric Medicine
DX: R07.9 Chest pain, unspecified (principal); R06.00 Dyspnea, unspecified; Z20.822 Contact with and (suspected) exposure to COVID-19; F17.210 Nicotine dependence, cigarettes, uncomplicated; F17.290 Nicotine dependence, other tobacco product, uncomplicated
CPT/HCPCS: 36415; 71046; 80053; 83690; 84484; 85025; 87637; 93005; 96361; 96374; 96375; 99284; J1885; J2405; J7030